=== PATIENT | female | born 1985 | race Caucasian/White ===

== ENCOUNTER → 2020-01-08 13:59 | Outpatient (BNVA) | payer OTHER, SELFPAY | PROVIDERS: Visit Provider Obstetrics & Gynecology | DX: R87.612 Low grade squamous intraepithelial lesion on cytologic smear of cervix (LGSIL) (principal) | CPT/HCPCS: 99203; 99213 ==

== ENCOUNTER 2020-02-06 13:59 | Outpatient (REF) | payer OTHER, SELFPAY | END 2020-02-06 14:00 | disposition home or self-care (01) | LOC: HO.LAB 13:59 | PROVIDERS: PCP Internal Medicine; Visit Provider Obstetrics & Gynecology | DX: R87.612 Low grade squamous intraepithelial lesion on cytologic smear of cervix (LGSIL) (principal) | CPT/HCPCS: 88305 ==

== ENCOUNTER → 2020-02-26 15:22 | Outpatient (BNVA) | payer OTHER, SELFPAY | PROVIDERS: Visit Provider Obstetrics & Gynecology | DX: Z76.89 Persons encountering health services in other specified circumstances (principal) ==

== ENCOUNTER 2020-07-15 08:32 | Outpatient (REF) | payer OTHER, SELFPAY ==
[2020-07-15 09:43] LABS: MANUAL DIFF FLAG NO
[2020-07-15 10:01] LABS: Basophils Absolute Auto 0.1 X10*3/uL (0.0-0.2); Basophils Percent Auto 0.5 % (0-2); Eosinophils Absolute Auto 0.2 X10*3/uL (0.0-0.4); Eosinophils Percent Auto 2.5 % (0-4); Hematocrit 41.6 % (37-47); Hemoglobin 13.4 g/dl (12.0-16.0); Imm Gran Abs Auto 0.05 X10*3/uL (0.00-0.03); Imm Gran Pct Auto 0.5 % (0.0-0.4); Lymphocytes Absolute Auto 2.2 X10*3/uL (1.2-4.9); Mean Corpuscular HGB Conc 32.2 g/dl (31.0-35.0); Mean Corpuscular Volume 93.3 fL (80-98); Mean Platelet Volume 10.1 fL (9.4-12.3); Monocytes Absolute Auto 0.5 X10*3/uL (0.1-1.2); Monocytes Percent Auto 5.2 % (2-11); Neutrophils Absolute Auto 6.8 X10*3/uL (2.0-8.3); Neutrophils Percent Auto 69.3 % (45-73); Platelet Count 364 X10*3/uL (160-400); Red Blood Count 4.46 X10*6/uL (4.20-5.50); White Blood Count 9.8 X10*3/uL (4.8-10.8)
[2020-07-15 10:07] LABS: Estimated Average Glucose 131 mg/dL; Hemoglobin A1C 155.5362 umol/L; Hemoglobin A1c % 6.2 %
[2020-07-15 10:08] LABS: Cholesterol 176 mg/dL; HDL Cholesterol 42 mg/dL; Iron 45 mcg/dL (30-160); LDL Cholesterol Calculated 102 mg/dl; Percent Iron Saturation 13 % (15-50); Total Iron Binding Capacity 358 mcg/dL (228-428); Triglycerides 161 mg/dL; Unsaturated Iron Binding 313 ug/dL
[2020-07-15 10:11] LABS: Alanine Aminotransferase 45 U/L (0-31); Albumin Level 4.1 g/dL (3.5-5.0); Alkaline Phosphatase 111 U/L (39-117); Anion Gap 12 (12-20); Aspartate Amino Transferase 22 U/L (5-31); Bilirubin Total 0.5 mg/dL (0.0-1.0); Blood Urea Nitrogen 11 mg/dL (9-16); Calcium 8.9 mg/dL (8.4-10.2); Carbon Dioxide 23 mmol/L (22-29); Chloride 107 mmol/L (96-108); Estimated Glomerular Filt Rate > 60; Glucose Random 139 mg/dL (60-115); Potassium 4.3 mmol/L (3.3-5.1); Sodium 138 mmol/L (135-145); Total Protein 7.2 g/dL (6.5-8.0)
[2020-07-15 10:30] LABS: Ferritin 27 ng/mL (10-122); Vitamin D 25-OH Total 12.9 ng/mL (>30)
[2020-07-15 10:33] LABS: Thyroid Stimulating Hormone 1.07 uIU/mL (0.32-4.0)
[2020-07-15 10:42] LABS: Folate 8.6 ng/mL (> or = 4.0); Vitamin B12 219 pg/mL (200-900)
[2020-07-21 23:16] LABS: Cotinine <2 ng/mL; Nicotine <2 ng/mL
== END 2020-07-15 08:33 | disposition home or self-care (01) ==
LOC: HO.LAB 08:32
PROVIDERS: PCP Internal Medicine; Referring Provider Surgery; Visit Provider Internal Medicine
DX: Z01.818 Encounter for other preprocedural examination (principal); E66.01 Morbid (severe) obesity due to excess calories; F31.9 Bipolar disorder, unspecified; L70.0 Acne vulgaris; M54.16 Radiculopathy, lumbar region
CPT/HCPCS: 36415; 80053; 80061; 80323; 82040; 82306; 82533; 82607; 82728; 82746; 83036; 83540; 83735; 84443; 85025

== ENCOUNTER 2020-08-31 17:08 | Emergency (ER) | payer OTHER, SELFPAY ==
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
[2020-08-31 17:15] VITALS: BP 168/100; PULSE 106
[2020-08-31 17:27] VITALS: BP 136/66; PULSE 102; RESP 18; O2SAT 97; BMI 53.6
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
[2020-08-31 18:58] LABS: MANUAL DIFF FLAG NO
[2020-08-31 19:04] LABS: Prothrombin Time 11.5 SEC (10.8-13.0)
[2020-08-31 19:05] LABS: Basophils Percent Auto 0.4 % (0-2); Eosinophils Absolute Auto 0.2 X10*3/uL (0.0-0.4); Hematocrit 38.3 % (37-47); Hemoglobin 12.6 g/dl (12.0-16.0); Imm Gran Abs Auto 0.08 X10*3/uL (0.00-0.03); Imm Gran Pct Auto 0.7 % (0.0-0.4); Lymphocytes Absolute Auto 2.1 X10*3/uL (1.2-4.9); Mean Corpuscular HGB Conc 32.9 g/dl (31.0-35.0); Mean Corpuscular Hemoglobin 30.4 pg (27.0-33.0); Mean Corpuscular Volume 92.5 fL (80-98); Mean Platelet Volume 9.6 fL (9.4-12.3); Monocytes Absolute Auto 0.6 X10*3/uL (0.1-1.2); Monocytes Percent Auto 5.4 % (2-11); Neutrophils Absolute Auto 7.8 X10*3/uL (2.0-8.3); Neutrophils Percent Auto 72.5 % (45-73); Platelet Count 351 X10*3/uL (160-400); Red Blood Count 4.14 X10*6/uL (4.20-5.50); White Blood Count 10.8 X10*3/uL (4.8-10.8)
[2020-08-31 19:06] LABS: Partial Thromboplastin Time 34.5 SEC (24.1-38.0)
[2020-08-31] MEDS: 0.9 % Sodium Chloride 1,000 ML 999 ML IV (19:17)
[2020-08-31 19:31] LABS: Alanine Aminotransferase 42 U/L (0-31); Alkaline Phosphatase 121 U/L (39-117); Anion Gap 10 (12-20); Aspartate Amino Transferase 29 U/L (5-31); Bilirubin Total 0.4 mg/dL (0.0-1.0); Blood Urea Nitrogen 17 mg/dL (9-16); Calcium 9.5 mg/dL (8.4-10.2); Carbon Dioxide 24 mmol/L (22-29); Chloride 108 mmol/L (96-108); Creatinine Clr Calc Pharmacy 150.1; Estimated Glomerular Filt Rate > 60; Glucose Random 143 mg/dL (60-115); Potassium 4.2 mmol/L (3.3-5.1); Sodium 138 mmol/L (135-145)
[2020-08-31 19:37] LABS: HCG Quantitative < 2 mIU/mL
[2020-08-31 19:37] LABS: Appearance Urine CLEAR; Color Urine YELLOW; Glucose Urine UA NEG (NEG); Leukocyte Esterase Urine NEG (NEG); Nitrite Urine NEG (NEG); Urine Blood NEG (NEG); Urine Ketones NEG (NEG); Urine Protein NEG (NEG-TRACE)
[2020-08-31 20:03] LABS: Amphetamine Screen Urine Not Detected (Not Detect); Barbiturates, Urine Not Detected (Not Detect); Benzodiazepines Screen Urine Not Detected (Not Detect); Cannabinoid Screen Urine Not Detected (Not Detect); Cocaine Screen Urine Not Detected (Not Detect); Opiate Screen Urine Not Detected (Not Detect); Phencyclidine Screen Urine Not Detected (Not Detect)
[2020-08-31] MEDS: iohexoL 350 MG/ML 100 ML INFUS..BTL IV (20:30)
== END 2020-08-31 22:02 | disposition home or self-care (01) ==
PROVIDERS: Physician Assistant; Emergency Provider Internal Medicine; PCP Internal Medicine
DX: S13.9XXA Sprain of joints and ligaments of unspecified parts of neck, initial encounter (principal); M54.2 Cervicalgia; M54.6 Pain in thoracic spine; R10.9 Unspecified abdominal pain; V43.52XA Car driver injured in collision with other type car in traffic accident, initial encounter; Y93.9 Activity, unspecified; Y92.411 Interstate highway as the place of occurrence of the external cause; Y99.9 Unspecified external cause status; Z79.899 Other long term (current) drug therapy
CPT/HCPCS: 36415; 71260; 72125; 74177; 80053; 80307; 81003; 84702; 85025; 85610; 85730; 96360; 99283; Q9967

== ENCOUNTER 2020-09-17 15:02 | Outpatient (RCR) | payer OTHER, SELFPAY | END 2020-10-26 10:10 | disposition home or self-care (01) | LOC: HO.PT 15:02 | PROVIDERS: PCP Internal Medicine; Visit Provider Internal Medicine | DX: M54.2 Cervicalgia (principal); M79.10 Myalgia, unspecified site | CPT/HCPCS: 97110; 97161 ==

== ENCOUNTER 2020-10-28 10:04 | Outpatient (REF) | payer OTHER, SELFPAY ==
[2020-10-29 00:47] LABS: CT PCR NOT DETECTED (Not Detect.); NG PCR NOT DETECTED (Not Detect.)
== END 2020-10-28 10:05 | disposition home or self-care (01) ==
LOC: HO.LAB 10:04
PROVIDERS: Visit Provider Obstetrics & Gynecology
DX: N92.1 Excessive and frequent menstruation with irregular cycle (principal); N87.0 Mild cervical dysplasia
CPT/HCPCS: 87491; 87591; 99212

== ENCOUNTER 2020-11-12 14:05 | Outpatient (REF) | payer OTHER, SELFPAY ==
--- NOTE | ~2020-11-12 | US_ITS ---
EXAMINATION: US PELVIC AND TRANSVAGINAL CLINICAL INFORMATION: Abnormal uterine and vaginal bleeding. COMPARISON: None TECHNIQUE: Ultrasound of the pelvis is performed using both transabdominal and transvaginal transducers along with Doppler. Transvaginal imaging is performed due to inadequate visualization transabdominally. FINDINGS: The uterus is anteverted and anteflexed measuring 10.1 cm in length, 4.7 cm in AP and 5.9 cm in transverse dimension. The endometrial thickness is 0.4 cm. No focal lesion is seen. Right ovary measures 4.2 x 3.2 x 3.6 cm and volume 25.3 mL. There is an anechoic cyst measuring 3.5 x 3.0 x 3.0 cm. Previously right ovary measured 3.1 x 4.3 x 3.1 cm. Left ovary measures 4.8 x 3.2 x 3.3 cm and volume 26.5 mL. There is an anechoic cyst measuring 3.2 x 2.1 x 2.6 cm. Previously left ovary measured 2.7 x 1.8 x 2.0 cm. There is small free fluid in the cul-de-sac. US/US pelvic and transvaginal IMPRESSION: Unremarkable uterus. Bilateral ovarian cysts. No free fluid in cul-de-sac.
[2020-11-12 14:48] LABS: Hematocrit 38.1 % (37-47); Hemoglobin 12.4 g/dl (12.0-16.0); Mean Corpuscular HGB Conc 32.5 g/dl (31.0-35.0); Mean Corpuscular Hemoglobin 30.4 pg (27.0-33.0); Mean Corpuscular Volume 93.4 fL (80-98); Mean Platelet Volume 9.7 fL (9.4-12.3); Platelet Count 329 X10*3/uL (160-400); Red Blood Count 4.08 X10*6/uL (4.20-5.50); Red Cell Distribution Width 14.4 % (11.0-16.0); White Blood Count 9.9 X10*3/uL (4.8-10.8)
[2020-11-12 16:00] LABS: HCG Quantitative < 2 mIU/mL
== END 2020-11-12 14:06 | disposition home or self-care (01) ==
LOC: HO.US 14:05
PROVIDERS: PCP Internal Medicine; Visit Provider Obstetrics & Gynecology
DX: N93.9 Abnormal uterine and vaginal bleeding, unspecified (principal)
CPT/HCPCS: 36415; 76830; 76856; 84443; 84702; 85027

== ENCOUNTER → 2020-11-18 14:13 | Outpatient (BNVA) | payer OTHER, SELFPAY | PROVIDERS: PCP Internal Medicine; Visit Provider Obstetrics & Gynecology ==

== ENCOUNTER → 2020-12-30 11:22 | Outpatient (BNVA) | payer OTHER, SELFPAY | PROVIDERS: PCP Internal Medicine; Visit Provider Obstetrics & Gynecology | DX: Z01.818 Encounter for other preprocedural examination (principal); N92.1 Excessive and frequent menstruation with irregular cycle | CPT/HCPCS: 99212 ==

== ENCOUNTER 2021-01-08 09:01 | Day surgery (SDC) | payer OTHER, SELFPAY ==
--- NOTE | 2021-01-06 14:06 | HO.ANESPROP2 ---
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 Migraine with aura Family History Family History Maternal Grandfather Liver cancer Paternal Grandmother Breast cancer Intestinal tumor Family/Other Uterine cancer Ovarian cancer Surgical History Surgical History History of Hx laparoscopic cholecystectomy Social History Social History Alcohol intake: current Substance Use Type: Marijuana Advance Directives: No Advance Directives Information Provided: Yes Sexual orientation: Straight/Heterosexual Gender identity: Female Meds Allergies Allergy/AdvReac Type Severity Reaction Status Date / Time penicillin V Allergy Unknown rash Verified 10/28/20 10:14 Home Medications Medication Instructions Recorded Confirmed Last Taken Type cyclobenzaprine 15 mg 15 mg PO DAILY 02/26/20 02/26/20 Unknown History capsule,extended release 24 hr topiramate 50 mg tablet (Topamax) 50 mg PO BID 02/26/20 02/26/20 01/08/21 History ferrous sulfate 325 mg (65 mg 325 mg PO DAILY 10/28/20 Unknown History iron) tablet (iron) loratadine 10 mg tablet 10 mg PO DAILY 10/28/20 01/08/21 History medroxyprogesterone 10 mg tablet 10 mg PO DAILY 10/28/20 Unknown History (Provera) omeprazole 20 mg tablet,delayed 20 mg PO DAILY 10/28/20 01/08/21 History release propranolol 40 mg tablet 1 tab PO BID 01/08/21 01/08/21 01/08/21 History venlafaxine 150 mg 1 cap PO DAILY 01/08/21 01/08/21 01/08/21 History capsule,extended release 24 hr Exam Exam Date and Time: January 06, 2021 1406 Pertinent Lab Results Pertinent Lab Results: Laboratory Tests 08/31/20 11/12/20 18:48 14:15 WBC 9.9 Hgb 12.4 Hct 38.1 Plt Count 329 Sodium 138 Potassium 4.2 Chloride 108 Carbon Dioxide 24 BUN 17 H D Creatinine 0.75 Assessment and Plan Assessment Anesthesia Assessment: Chart Reviewed Documented by User: Alyce Weaver MD 01/08/21 09:22 [facility] Past Medical History Medical History ADHD Bipolar 2 disorder 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 Migraine with aura Functional capacity: independent ambulation Patient : No Family History Family History Maternal Grandfather Liver cancer Paternal Grandmother Breast cancer Intestinal tumor Family/Other Uterine cancer Ovarian cancer Family history of problems with anesthesia: No Surgical History Surgical History History of Hx laparoscopic cholecystectomy History of Problems with Anesthesia: No Social History Social History Alcohol intake: current Substance Use Type: Marijuana Advance Directives: No Advance Directives Information Provided: Yes Sexual orientation: Straight/Heterosexual Gender identity: Female Meds Allergies Allergy/AdvReac Type Severity Reaction Status Date / Time penicillin V Allergy Unknown rash Verified 10/28/20 10:14 Home Medications Medication Instructions Recorded Confirmed Last Taken Type cyclobenzaprine 15 mg 15 mg PO DAILY 02/26/20 02/26/20 Unknown History capsule,extended release 24 hr topiramate 50 mg tablet (Topamax) 50 mg PO BID 02/26/20 02/26/2021 History ferrous sulfate 325 mg (65 mg 325 mg PO DAILY 10/28/20 Unknown History iron) tablet (iron) loratadine 10 mg tablet 10 mg PO DAILY 10/28/20 01/08/21 History medroxyprogesterone 10 mg tablet 10 mg PO DAILY 10/28/20 Unknown History (Provera) omeprazole 20 mg tablet,delayed 20 mg PO DAILY 10/28/20 01/08/21 History release propranolol 40 mg tablet 1 tab PO BID 01/08/21 01/08/21 01/08/21 History venlafaxine 150 mg 1 cap PO DAILY 01/08/21 01/08/21 01/08/21 History capsule,extended release 24 hr Exam Airway TM Dist: >3cm Neck ROM: Full Heart: RRR Lungs: Lamar Assessment and Plan Final Anesthetic Review Family History of Problems with Anesthesia: No History of Problems with Anesthesia: No
[2021-01-08] VITALS (7 sets, daily range): BP systolic 123–147; BP diastolic 73–97; PULSE 76–88; RESP 14–18; TEMP 36.4–37.1; O2SAT 93–98; BMI 55.2
[2021-01-08 09:32] LABS: UPreg QC Valid YES; Urine Pregnancy NEGATIVE (NEGATIVE)
[2021-01-08] MEDS: Lactated Ringers 1,000 ML 100 ML IVCONT (10:03)
--- NOTE | 2021-01-08 10:04 | MHC.SHP ---
Pre-Procedural Eval Section A Date of Service: 01/08/21 The patient is an INPATIENT: No Changes since office visit: No Cold of Flu in the past 2 weeks, No New Medical Problems, No Changes in Medication and No Patient answered all questions The History & Physical has been completed within 30 days and I have reviewed it.: Yes Section B Chief Complaint: frequent bleeding Allergies: Allergies Allergy/AdvReac Type Severity Reaction Status Date / Time penicillin V Allergy Unknown rash Verified 10/28/20 10:14 Plan Diagnosis/Plan: Unchanged I have reviewed the history and physical and performed a pertinent physical examination on my patient. No changes have occurred unless specified.
--- NOTE | 2021-01-08 10:53 | P.BOP_ITS ---
Brief Operative Note Date of Service: 01/08/21 Pre-op diagnosis: Menometrorrhagia Post-op diagnosis: same Procedure: Hysteroscopy D&C Surgeon: Dylan Blakely MD Anesthesia: MAC Was an Experimental Aircraft Mechanic used for this Procedure?: No Estimated blood loss (mL): 0 Pathology: other (Endometrial Scrapping) Condition: stable Disposition: PACU
--- NOTE | 2021-01-08 10:53 | W.PM.OPN ---
Operative Note Operative Note Date of Service: 01/08/21 Narrative: Preop Diagnosis: Menometrorrhagia Operation: Diagnostic Hysteroscopy, Dilataion & Curettage Post Op Diagnosis: Normal endometrial cavity QBL: Minimal Anesthesia: MAC Surgeon: Dylan Blakely MD Intellectual Property Paralegal: None Complication: None Pathology: Endometrial Scrapings Complication: None Pathology: Endometrial Scrapings Procedure: The patient was put in the dorsal lithotomy position, scrubbed, and draped in the usual manner. A sterile speculum was inserted in the patient's vagina. The anterior lip of the cervix was grasped with a single tooth tenaculum. The cervix was dilated up to 5 mm, then the scope was inserted in the patient's uterus. Inspection revealed Normal endometrial cavity. Sharp curetting was carried on with moderate amount of tissues. At the end of the procedure, all instruments were taken out of the patient uterine and vaginal cavity. The single tooth tenaculum was removed and homeostasis was assured using pressure,. The patient tolerated the procedure well and was transferred to the PACU in a stable condition.
[2021-01-08] MEDS: Acetaminophen 325 MG TABLET 650 MG PO (12:04)
--- NOTE | 2021-01-08 14:01 | HO.POSTANES ---
Post Anesthesia Evaluation Post Anesthesia Evaluation Vital Signs: Vital Signs Temp Pulse Resp BP Pulse Ox 01/08/21 11:49 98.2 F 77 18 123/91 H 95 01/08/21 11:33 81 18 134/88 93 01/08/21 11:18 88 16 131/73 93 01/08/21 11:13 78 16 147/97 H 96 01/08/21 11:08 76 14 146/95 H 98 01/08/21 11:03 97.5 F 77 15 128/90 H 96 01/08/21 09:28 98.7 F 87 18 134/86 97 Anesthesia: General LMA Mental Status: Awake Pain Control: Satisfactory Nausea/Vomiting: None Hydration: Adequate Anesthesia-Related Issues: No Anes. Related Issues
== END 2021-01-08 12:45 | disposition home or self-care (01) ==
PROVIDERS: Nurse Practitioner; Visit Provider Obstetrics & Gynecology
PROC: 0UDB8ZZ Extraction of Endometrium, Via Natural or Artificial Opening Endoscopic (ICD-10-PCS; CPT 58558; principal; 2021-01-08 10:20)
DX: N92.1 Excessive and frequent menstruation with irregular cycle (principal); Z86.19 Personal history of other infectious and parasitic diseases; Z80.49 Family history of malignant neoplasm of other genital organs; Z80.41 Family history of malignant neoplasm of ovary; Z88.0 Allergy status to penicillin; Z90.49 Acquired absence of other specified parts of digestive tract; F12.90 Cannabis use, unspecified, uncomplicated
CPT/HCPCS: 58558; 81025; 88305; J1100; J2250; J2405; J3010

== ENCOUNTER → 2021-01-21 14:54 | Outpatient (BNVA) | payer OTHER, SELFPAY | PROVIDERS: Visit Provider Obstetrics & Gynecology ==

== ENCOUNTER → 2021-04-26 15:34 | Outpatient (BNVA) | payer OTHER, SELFPAY | PROVIDERS: Visit Provider Obstetrics & Gynecology ==

== ENCOUNTER 2021-06-08 16:31 | Outpatient (REF) | payer OTHER, SELFPAY ==
[2021-06-08 16:52] LABS: MANUAL DIFF FLAG NO
[2021-06-08 17:13] LABS: Basophils Percent Auto 0.5 % (0-2); Eosinophils Absolute Auto 0.2 X10*3/uL (0.0-0.4); Eosinophils Percent Auto 1.8 % (0-4); Hematocrit 43.6 % (37.0-47.0); Hemoglobin 13.8 g/dl (12.0-16.0); Imm Gran Abs Auto 0.07 X10*3/uL (0.00-0.03); Imm Gran Pct Auto 0.8 % (0.0-0.4); Lymphocytes Absolute Auto 2.3 X10*3/uL (1.2-4.9); Lymphocytes Percent Auto 26.1 % (20-40); Mean Corpuscular HGB Conc 31.7 g/dl (31.0-35.0); Mean Corpuscular Hemoglobin 30.3 pg (27.0-33.0); Mean Corpuscular Volume 95.8 fL (80.0-98.0); Mean Platelet Volume 10.6 fL (9.4-12.3); Monocytes Absolute Auto 0.4 X10*3/uL (0.1-1.2); Monocytes Percent Auto 4.8 % (2-11); Neutrophils Absolute Auto 5.8 x10*3/uL (2.0-8.3); Platelet Count 276 X10*3/uL (160-400); Red Blood Count 4.55 X10*6/uL (4.20-5.50); Red Cell Distribution Width 13.5 % (11.0-16.0); White Blood Count 8.8 X10*3/uL (4.8-10.8)
[2021-06-08 18:31] LABS: Amylase 16 U/L (28-100)
[2021-06-08 18:33] LABS: Osmolality, Serum 299 mosm/kg (281-305)
[2021-06-08 18:37] LABS: Thyroid Stimulating Hormone 2.08 uIU/mL (0.32-4.0)
[2021-06-08 18:40] LABS: Alanine Aminotransferase 64 U/L (0-31); Albumin Level 4.2 g/dL (3.5-5.0); Alkaline Phosphatase 153 U/L (39-117); Anion Gap 14 (12-20); Aspartate Amino Transferase 50 U/L (5-31); Bilirubin Total 0.3 mg/dL (0.0-1.0); Blood Urea Nitrogen 12 mg/dL (9-16); Calcium 9.9 mg/dL (8.4-10.2); Carbon Dioxide 24 mmol/L (22-29); Chloride 98 mmol/L (96-108); Estimated Glomerular Filt Rate > 60; Glucose Random 457 mg/dL (60-115); Potassium 4.5 mmol/L (3.3-5.1); Sodium 131 mmol/L (135-145); Total Protein 7.4 g/dL (6.5-8.0)
[2021-06-09 03:57] LABS: Estimated Average Glucose 315 mg/dL; Hemoglobin A1c % 12.6 %
== END 2021-06-08 16:32 | disposition home or self-care (01) ==
LOC: HO.LAB 16:31
PROVIDERS: PCP Internal Medicine; Visit Provider Internal Medicine
DX: D50.8 Other iron deficiency anemias (principal); E11.65 Type 2 diabetes mellitus with hyperglycemia; R10.9 Unspecified abdominal pain; R63.1 Polydipsia
CPT/HCPCS: 36415; 80053; 82150; 83036; 83930; 84443; 85025

== ENCOUNTER 2021-10-26 11:40 | Outpatient (REF) | payer OTHER, SELFPAY ==
--- NOTE | ~2021-10-26 | XR_ITS ---
EXAMINATION: XR LUMBOSACRAL SPINE WITH OBLIQUES CLINICAL INFORMATION: Midline low back pain with right-sided sciatica. COMPARISON: Lumbar spine radiographs 12/20/[address] abdomen pelvis 08/31/2020. TECHNIQUE: AP, both oblique, and lateral views of the lumbar spine. Lateral view of the lumbosacral junction. FINDINGS: Mild degenerative changes are present in the spine predominantly at L4-L5 with mild disc space narrowing. The previously seen anterolisthesis of L4 upon L5 is only minimally appreciated on the current study and appeared larger previously. Bilateral pars intra-articularis defects are present, but better appreciated on the prior study. XR/XR lumbar spine 4V min IMPRESSION: Degenerative changes predominantly at L4-L5 with mild grade 1 anterolisthesis and bilateral pars defects.
[2021-10-26 12:15] LABS: MANUAL DIFF FLAG NO
[2021-10-26 12:46] LABS: Basophils Percent Auto 0.4 % (0-2); Eosinophils Absolute Auto 0.1 X10*3/uL (0.0-0.4); Eosinophils Percent Auto 1.5 % (0-4); Hematocrit 41.1 % (37.0-47.0); Hemoglobin 13.5 g/dl (12.0-16.0); Imm Gran Abs Auto 0.05 X10*3/uL (0.00-0.03); Imm Gran Pct Auto 0.5 % (0.0-0.4); Lymphocytes Absolute Auto 2.4 X10*3/uL (1.2-4.9); Lymphocytes Percent Auto 25.4 % (20-40); Mean Corpuscular HGB Conc 32.8 g/dl (31.0-35.0); Mean Corpuscular Hemoglobin 30.8 pg (27.0-33.0); Mean Corpuscular Volume 93.8 fL (80.0-98.0); Mean Platelet Volume 9.7 fL (9.4-12.3); Monocytes Absolute Auto 0.5 X10*3/uL (0.1-1.2); Monocytes Percent Auto 5.1 % (2-11); Neutrophils Absolute Auto 6.3 x10*3/uL (2.0-8.3); Neutrophils Percent Auto 67.1 % (45-73); Platelet Count 394 X10*3/uL (160-400); Red Blood Count 4.38 X10*6/uL (4.20-5.50); Red Cell Distribution Width 13.2 % (11.0-16.0); White Blood Count 9.4 X10*3/uL (4.8-10.8)
[2021-10-26 12:51] LABS: Estimated Average Glucose 117 mg/dL; Hemoglobin A1c % 5.7 %
[2021-10-26 13:16] LABS: Alanine Aminotransferase 51 U/L (0-31); Albumin Level 4.3 g/dL (3.5-5.0); Alkaline Phosphatase 139 U/L (39-117); Anion Gap 14 (12-20); Aspartate Amino Transferase 28 U/L (5-31); Bilirubin Total 0.3 mg/dL (0.0-1.0); Blood Urea Nitrogen 13 mg/dL (9-16); Calcium 9.6 mg/dL (8.4-10.2); Carbon Dioxide 21 mmol/L (22-29); Chloride 106 mmol/L (96-108); Cholesterol 185 mg/dL; Estimated Glomerular Filt Rate > 60; Glucose Random 104 mg/dL (60-115); HDL Cholesterol 35 mg/dL; LDL Cholesterol Calculated 116 mg/dl; Potassium 4.7 mmol/L (3.3-5.1); Sodium 136 mmol/L (135-145); Total Protein 7.5 g/dL (6.5-8.0); Triglycerides 170 mg/dL
[2021-10-26 14:46] LABS: Microalbumin Urine < 5.0 mg/L
== END 2021-10-26 11:41 | disposition home or self-care (01) ==
LOC: HO.LAB 11:40
PROVIDERS: Absent Provider Physician Assistant; PCP Internal Medicine; Visit Provider Internal Medicine
DX: E11.9 Type 2 diabetes mellitus without complications (principal); K29.60 Other gastritis without bleeding; M51.16 Intervertebral disc disorders with radiculopathy, lumbar region
CPT/HCPCS: 36415; 72110; 80053; 80061; 82043; 83036; 85025

== ENCOUNTER 2022-07-07 10:32 | Outpatient (REF) | payer OTHER, SELFPAY ==
[2022-07-11 22:44] LABS: HPV mRNA E6/E7 rflx Not Detected (Not Detected)
== END 2022-07-07 10:33 | disposition home or self-care (01) ==
LOC: HO.LNP 10:32
PROVIDERS: Visit Provider Obstetrics & Gynecology
DX: Z01.419 Encounter for gynecological examination (general) (routine) without abnormal findings (principal); Z11.51 Encounter for screening for human papillomavirus (HPV)
CPT/HCPCS: 87624; 88142

== ENCOUNTER 2022-10-20 10:10 | Outpatient (REF) | payer MEDICAID, SELFPAY ==
[2022-10-20 10:40] LABS: MANUAL DIFF FLAG NO
[2022-10-20 10:59] LABS: Basophils Percent Auto 0.3 % (0-2); Eosinophils Absolute Auto 0.2 X10*3/uL (0.0-0.4); Eosinophils Percent Auto 1.4 % (0-4); Hematocrit 43.3 % (37.0-47.0); Imm Gran Abs Auto 0.07 X10*3/uL (0.00-0.03); Imm Gran Pct Auto 0.6 % (0.0-0.4); Lymphocytes Absolute Auto 2.6 X10*3/uL (1.2-4.9); Mean Corpuscular HGB Conc 32.3 g/dl (31.0-35.0); Mean Corpuscular Volume 92.9 fL (80.0-98.0); Monocytes Absolute Auto 0.5 X10*3/uL (0.1-1.2); Monocytes Percent Auto 4.2 % (2-11); Neutrophils Absolute Auto 8.3 x10*3/uL (2.0-8.3); Neutrophils Percent Auto 71.5 % (45-73); Platelet Count 407 X10*3/uL (160-400); Red Blood Count 4.66 X10*6/uL (4.20-5.50); Red Cell Distribution Width 13.3 % (11.0-16.0); White Blood Count 11.6 X10*3/uL (4.8-10.8)
[2022-10-20 11:12] LABS: Estimated Average Glucose 126 mg/dL
[2022-10-20 11:34] LABS: Alanine Aminotransferase 38 U/L (0-31); Alkaline Phosphatase 94 U/L (39-117); Anion Gap 15 (12-20); Aspartate Amino Transferase 22 U/L (5-31); Bilirubin Total 0.4 mg/dL (0.0-1.0); Blood Urea Nitrogen 9 mg/dL (9-16); Calcium 9.6 mg/dL (8.4-10.2); Carbon Dioxide 22 mmol/L (22-29); Chloride 106 mmol/L (96-108); Cholesterol 163 mg/dL; Estimated Glomerular Filt Rate > 60; Glucose Random 118 mg/dL (60-115); HDL Cholesterol 36 mg/dL; LDL Cholesterol Calculated 103 mg/dl; Sodium 139 mmol/L (135-145); Total Protein 7.7 g/dL (6.5-8.0); Triglycerides 120 mg/dL
[2022-10-20 11:53] LABS: Vitamin D 25-OH Total 19.5 ng/mL (>30)
[2022-10-20 13:30] LABS: Creatinine Urine 117.38 mg/dL; Microalbumin Urine < 5.0 mg/L
== END 2022-10-20 10:11 | disposition home or self-care (01) ==
LOC: HO.LAB 10:10
PROVIDERS: PCP Nurse Practitioner Family; Visit Provider Registered Nurse
DX: E11.9 Type 2 diabetes mellitus without complications (principal)
CPT/HCPCS: 36415; 80053; 80061; 82043; 82306; 83036; 84443; 85025

== ENCOUNTER 2022-12-12 14:43 | Outpatient (REF) | payer MEDICAID, SELFPAY ==
--- NOTE | ~2022-12-12 | XR_ITS ---
EXAMINATION: XR THORACOLUMBAR SPINE CLINICAL INFORMATION: Pain. COMPARISON: CT chest August 31, 2020 TECHNIQUE: 2 views FINDINGS: Thoracic vertebrae have normal height and alignment. No fracture or bone destruction. There is mild to moderate degenerative lipping from degenerative disc disease of the mid and lower thoracic vertebral bodies. No paraspinal soft tissue abnormality. No change since CAT scan August 31, 2020. XR/XR thoracic spine 2V IMPRESSION: 1. No acute abnormality. 2. There is degenerative spondylosis of thoracic spine.
--- NOTE | ~2022-12-12 | XR_ITS ---
EXAMINATION: AP pelvis and bilateral hip. CLINICAL INDICATION: Chronic bilateral low back pain. COMPARISON: AP pelvis 01/19/2015 TECHNIQUE: AP pelvis one view. 2 views each hip. FINDINGS: AP PELVIS: There is normal symmetry of bilateral hip joints and SI joints. No visible acute fracture, dislocation or subluxation seen. No bony erosive changes. The soft tissues are normal. RIGHT HIP: AP and frog-leg views right hip reveal small tiny bone fragment at the tip of lateral acetabulum likely an old avulsion fragment. No acute fracture or dislocation seen. LEFT HIP: The left hip joint space is maintained normal. No loose bodies or avulsion injury seen. No acute fracture or dislocation. The soft tissues are normal. XR/XR pelvis 1-2V IMPRESSION: Slight tiny bone fragment adjacent to right lateral acetabulum question old avulsion injury. There is no acute fracture or dislocation either. Unremarkable AP pelvis exam. The AP pelvis exam appears similar to previous study from 2015.
--- NOTE | ~2022-12-12 | XR_ITS ---
EXAMINATION: XR LUMBOSACRAL SPINE CLINICAL INFORMATION: Chronic low back pain. COMPARISON: Lumbar spine December 20, 2019, October 26, 2021 TECHNIQUE: AP. Lateral. Cone-down lumbosacral junction. FINDINGS: Lumbar vertebrae have normal height. No fracture or bone destruction. There is degenerative spondylosis. Lumbar disc height narrowing at L4-L5 with anterior vertebral endplate spur. Grade 1 anterolisthesis of L4 and L5 due to facet joint disease. This is similar to the prior exam of October 26, 2021. Sacroiliac joints are normal. Surgical clips right upper quadrant of abdomen. XR/XR lumbar spine 2-3V IMPRESSION: 1. No acute abnormality. 2. Degenerative spondylosis of lumbar spine. 3. Grade 1 anterolisthesis of L4 on L5 due to facet joint disease. No significant change since prior exam October 26, 2021.
--- NOTE | ~2022-12-12 | XR_ITS ---
EXAMINATION: AP pelvis and bilateral hip. CLINICAL INDICATION: Chronic bilateral low back pain. COMPARISON: AP pelvis 01/19/2015 TECHNIQUE: AP pelvis one view. 2 views each hip. FINDINGS: AP PELVIS: There is normal symmetry of bilateral hip joints and SI joints. No visible acute fracture, dislocation or subluxation seen. No bony erosive changes. The soft tissues are normal. RIGHT HIP: AP and frog-leg views right hip reveal small tiny bone fragment at the tip of lateral acetabulum likely an old avulsion fragment. No acute fracture or dislocation seen. LEFT HIP: The left hip joint space is maintained normal. No loose bodies or avulsion injury seen. No acute fracture or dislocation. The soft tissues are normal. XR/XR hip LT min 2V IMPRESSION: Slight tiny bone fragment adjacent to right lateral acetabulum question old avulsion injury. There is no acute fracture or dislocation either. Unremarkable AP pelvis exam. The AP pelvis exam appears similar to previous study from 2015.
--- NOTE | ~2022-12-12 | XR_ITS ---
EXAMINATION: AP pelvis and bilateral hip. CLINICAL INDICATION: Chronic bilateral low back pain. COMPARISON: AP pelvis 01/19/2015 TECHNIQUE: AP pelvis one view. 2 views each hip. FINDINGS: AP PELVIS: There is normal symmetry of bilateral hip joints and SI joints. No visible acute fracture, dislocation or subluxation seen. No bony erosive changes. The soft tissues are normal. RIGHT HIP: AP and frog-leg views right hip reveal small tiny bone fragment at the tip of lateral acetabulum likely an old avulsion fragment. No acute fracture or dislocation seen. LEFT HIP: The left hip joint space is maintained normal. No loose bodies or avulsion injury seen. No acute fracture or dislocation. The soft tissues are normal. XR/XR hip RT min 2V IMPRESSION: Slight tiny bone fragment adjacent to right lateral acetabulum question old avulsion injury. There is no acute fracture or dislocation either. Unremarkable AP pelvis exam. The AP pelvis exam appears similar to previous study from 2015.
== END 2022-12-12 14:44 | disposition home or self-care (01) ==
LOC: HO.HHCX 14:43
PROVIDERS: Visit Provider Registered Nurse
DX: M25.552 Pain in left hip (principal); M54.41 Lumbago with sciatica, right side; G89.29 Other chronic pain
CPT/HCPCS: 72070; 72100; 72170; 73502

== ENCOUNTER 2022-12-29 12:55 | Outpatient (AMB) | payer MEDICAID, SELFPAY ==
--- NOTE | 2022-12-29 13:08 | MHC.OFFVIS ---
Intake Vital Signs 12/29/22 13:17 Height 5 ft 5 in Weight 284 lb 8 oz BMI 47.3 BP 129/77 Blood Pressure Location Lt radial Respiration 18 Pulse 91 Pulse Source Pulse Oximeter Pulse Oximetry (%) 98 Oxygen Delivery Method Room Air Intake Visit Reasons: lumbar radiculopathy/thoracic spondylosis Allergies penicillin V Allergy (Unknown, Verified 12/29/22 13:03) rash HPI HPI Comments History of Present Illness Details Elle is a very pleasant 37 year old female who presents to the office today for evaluation and management of her chronic lower back pain. Patient reports she has been suffering with this pain since 2012 when she fell through a floor. Pain is located in her right lower back with radiation down right leg to the foot. She endorses pain, burning and some numbness of the RLE. Patient tried PT a couple years ago with some relief. She has tried NSAIDs, tylenol, muscle relaxers without relief. She currently uses THC for her pain with some relief. She states the pain was stable for many years but has worsened over the last year. She has been working on losing weight, states eating better and has improved her A1c. She is non insulin diabetic, most recent A1c was 6.0 on 09/2022. 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 She is using a rollator walker for ambulation. She describes the pain as constant, currently rated today at 8/10. Patient denies red flag symptoms including new loss of bowel, bladder or saddle anesthesia. In terms of muscle damage condition is described as aching, shooting, dull, spasming, cramping, numb and throbbing. Pain is negatively impacting patients enjoyment of life, general activity, mood, normal work, recreational activities, relationships with people, sleep and walking. 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 Surgical History Hx laparoscopic cholecystectomy History of Family History Maternal Grandfather Liver cancer Paternal Grandmother Breast cancer Intestinal tumor Family/Other Uterine cancer Ovarian cancer Social History Alcohol intake: current Patient Tobacco Use Status: Former Tobacco user Substance Use Type: Marijuana Sexual orientation: Straight/Heterosexual Gender identity: Female Female Reproductive History Menstrual Age of Menarche: 9 Review of Systems Const All systems reviewed & are unremarkable except as noted in HPI and below Physical Exam Vital Signs: Last Vital Signs Pulse 91 12/29/22 13:17 Resp 18 12/29/22 13:17 BP 129/77 12/29/22 13:17 Pulse Ox 98 12/29/22 13:17 Oxygen Delivery Method Room Air 12/29/22 13:17 BMI result Body Mass Index 47.3 General: awake, alert, oriented. Answers questions appropriately. Fully engaged in examination. Skin: warm, dry, intact HEENT: Normocephalic. Hearing intact. Cardiac: External chest normal in appearance. Respiratory: No cough, audible wheezing or stridor. Abdomen: without gross distension. MS: No obvious swelling or deformities. Able to stand on bilateral tiptoes and bilateral heels.? Able to transition from sit to stand unassisted. Ambulates with bilaterally normal heel strike and toe off Tender to palpation over lumbar paraspinal muscles nontender to palpation PSIS SLR with and without dorsiflexion positive on right, negative on left Jean-Claude positive on right Right hip: ROM intact, no pain with I/E rotation Neurological: Oriented to person, place, time and situation. Thought process intact. using rollator walker for ambulation Psychiatric: Appropriate mood and affect. Good judgment and insight. Results Reviewed Results Reviewed: 12/12/2022 XR/XR lumbar spine 2-3V FINDINGS: Lumbar vertebrae have normal height. No fracture or bone destruction. There is degenerative spondylosis. Lumbar disc height narrowing at L4-L5 with anterior vertebral endplate spur. Grade 1 anterolisthesis of L4 and L5 due to facet joint disease. This is similar to the prior exam of October 26, 2021. Sacroiliac joints are normal. Surgical clips right upper quadrant of abdomen. IMPRESSION: 1. No acute abnormality. 2. Degenerative spondylosis of lumbar spine. 3. Grade 1 anterolisthesis of L4 on L5 due to facet joint disease. No significant change since prior exam October 26, 2021. 12/12/2022 XR/XR pelvis 1-2V FINDINGS: AP PELVIS: There is normal symmetry of bilateral hip joints and SI joints. No visible acute fracture, dislocation or subluxation seen. No bony erosive changes. The soft tissues are normal. RIGHT HIP: AP and frog-leg views right hip reveal small tiny bone fragment at the tip of lateral acetabulum likely an old avulsion fragment. No acute fracture or dislocation seen. LEFT HIP: The left hip joint space is maintained normal. No loose bodies or avulsion injury seen. No acute fracture or dislocation. The soft tissues are normal. IMPRESSION: Slight tiny bone fragment adjacent to right lateral acetabulum question old avulsion injury. There is no acute fracture or dislocation either. Unremarkable AP pelvis exam. The AP pelvis exam appears similar to previous study from 2015. 12/12/2022 XR/XR thoracic spine 2V FINDINGS: Thoracic vertebrae have normal height and alignment. No fracture or bone destruction. There is mild to moderate degenerative lipping from degenerative disc disease of the mid and lower thoracic vertebral bodies. No paraspinal soft tissue abnormality. No change since CAT scan August 31, 2020. IMPRESSION: 1. No acute abnormality. 2. There is degenerative spondylosis of thoracic spine Assessment & Plan Assessment & Plan (1) Lumbar radiculopathy: Code(s): M54.16 - Radiculopathy, lumbar region (2) Facet arthritis of lumbar region: Code(s): M47.816 - Spondylosis without myelopathy or radiculopathy, lumbar region Plan Elle is a very pleasant 37 year old female who presented to the office today for evaluation and management of her chronic lower back pain. History, physical exam and provocative testing consistant with lumbar radiculopathy. MRI LS without contrast ordered for further evaluation given patient's reported burning, numbness and pain down right leg to the toes. Order placed for PT eval and treat Discussed options for treatment including diagnostic interventional testing, epidural steroid injections, peripheral nerve stimulation with Sprint, RFA and more permanent neuromodulation. Plan for L4-5 L5-S1 TFESI pending MRI results. If warranted will refer to neurosurgery for evaluation. All questions and concerns have been answered and patient agrees with the plan. Follow up after MRI/PT, sooner if needed. Orders: Orders MR lumbar spine wo con Today M54.16 - Radiculopathy, lumbar region PT Evaluation and Treatment Today M54.16 - Radiculopathy, lumbar region Coding Level of Care Code New Pt Level 4 (21409) Diagnoses Lumbar radiculopathy M54.16 Facet arthritis of lumbar region M47.816
[2022-12-29 13:17] VITALS: BP 129/77; PULSE 91; RESP 18; O2SAT 98; BMI 47.3
== END 2022-12-29 13:47 | disposition home or self-care (01) ==
PROVIDERS: PCP Nurse Practitioner Family; Visit Provider Registered Nurse Emergency
DX: M54.16 Radiculopathy, lumbar region (principal); M47.816 Spondylosis without myelopathy or radiculopathy, lumbar region
CPT/HCPCS: 99204

== ENCOUNTER → 2022-12-29 12:55 | Outpatient (BNVA) | payer MEDICAID, SELFPAY | PROVIDERS: PCP Nurse Practitioner Family; Visit Provider Registered Nurse Emergency | DX: M47.26 Other spondylosis with radiculopathy, lumbar region (principal) | CPT/HCPCS: 99212 ==

== ENCOUNTER 2023-02-03 11:00 | Outpatient (RCR) | payer MEDICAID, SELFPAY | END 2023-03-17 10:40 | disposition home or self-care (01) | LOC: HO.PT 11:00 | PROVIDERS: PCP Registered Nurse; Visit Provider Registered Nurse | DX: M54.16 Radiculopathy, lumbar region (principal); M47.814 Spondylosis without myelopathy or radiculopathy, thoracic region | CPT/HCPCS: 97110; 97161; 97535 ==

== ENCOUNTER 2023-05-23 21:47 | Emergency (ER) | payer MEDICAID, SELFPAY ==
[2023-05-23 22:24] VITALS: BP 118/78; PULSE 88; RESP 14; TEMP 37; O2SAT 95; BMI 46.6
[2023-05-23 23:35] LABS: COVID-19 Test Negative (Negative); IDNOW Serial# 08D9AD1C; IDNOW Serial# 9DB6401D; Influenza A Negative (Negative); Influenza B2 Negative (Negative)
--- NOTE | 2023-05-24 00:26 | ED_ITS ---
HPI - General Adult General Chief complaint: Headache Stated complaint: ear pain/headache Time Seen by Provider: 05/23/23 23:56 Source: patient Mode of arrival: ambulatory Limitations: no limitations History of Present Illness HPI narrative: 37 yold female with pmh of lumbar radiculopathy and low-grade squamous intraepithelial dysplasia presents to the ED for bilateral ear pain, sinus pain for 1 week. Patient states hearing whooshing sound in bilateral ears with pain. Patient denies any discharge or bleeding from ears. Patient denies any head trauma. Patient denies any chest pain, coughing rash, shortness of breath. Patient denies any sore throat. Related Data Home Medications Medication Instructions Recorded Confirmed cyclobenzaprine 15 mg 15 mg PO DAILY 02/26/20 02/26/20 capsule,extended release 24 hr omeprazole 20 mg tablet,delayed 20 mg PO DAILY 10/28/20 release blood sugar diagnostic (FreeStyle #10 ea 07/07/22 Lite Strips) lancets 28 gauge (FreeStyle #100 ea 07/07/22 Lancets) acetaminophen 325 mg capsule 650 mg PO Q6H PRN 12/29/22 gabapentin 100 mg capsule 100 mg PO TID 12/29/22 Previous Rx's Medication Instructions Recorded cefuroxime axetil 500 mg tablet 500 mg PO Q12H 7 days #14 tabs 05/24/23 naproxen 500 mg tablet 500 mg PO BID PRN pain 7 days #14 05/24/23 tabs Allergies Allergy/AdvReac Type Severity Reaction Status Date / Time penicillin V Allergy Unknown rash Verified 05/23/23 22:24 Review of Systems Review of Systems: bilateral ear pain, sinus pain, head congestion Yes all other systems are reviewed and are negative [facility] Past Medical History Medical History KRISHNA I (cervical intraepithelial neoplasia I) Migraine with aura ADHD Bipolar 2 disorder 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 Surgical History Hx laparoscopic cholecystectomy History of Family History Family History Maternal Grandfather Liver cancer Paternal Grandmother Breast cancer Intestinal tumor Family/Other Uterine cancer Ovarian cancer Social History Social History (Reviewed 12/29/22 @ 14:32 by Nguyen Lundberg, INTERNAL MEDICINE PHYSICIAN, ASSOCIATE PROGRAMMER) Alcohol intake: current Comment: cramping Patient Tobacco Use Status: Former Tobacco user Substance Use Type: Marijuana Advance Directives: No Advance Directives Information Provided: No Sexual orientation: Straight/Heterosexual Gender identity: Female Physical Exam ED Vital Signs: Vital Signs - 24 hr 05/23/23 22:24 Temperature 98.6 F Pulse Rate 88 Respiratory Rate 14 Blood Pressure 118/78 Pulse Oximetry 95 Oxygen Delivery Method Room Air BMI result Body Mass Index 46.6 Const General: cooperative, healthy appearing, comfortable, no acute distress, well developed, alert and awake Orientation/consciousness: oriented to person, oriented to place, oriented to time and patient oriented x3 HENMT Head: Yes normal to inspection, Yes No palpable skull fracture present, Yes normocephalic and Yes atraumatic Ears: hearing grossly normal bilaterally, external ears normal, EAC's normal, mastoids normal, no periauricular adenopathy and TM abnormal erythematous bilateral Throat: Yes posterior oropharynx normal, Yes tonsils normal and Yes uvula midline Eyes General: appearance normal, both eyes and all related structures Neck Neck: Yes normal visual inspection, Yes full ROM, Yes no lymphadenopathy, Yes no meningeal signs, Yes trachea midline, Yes supple, No anterior neck swelling and No tender Chest Chest palpation & inspection: normal inspection of the chest and normal palpation of entire chest wall Resp Effort & Inspection: normal respiratory effort and able to speak in complete sentences Auscultation: clear to auscultation bilaterally Cardio Jugular venous distension: no JVD Heart sounds: S1 normal heart sound present and S2 normal heart sound present GI Inspection: Yes normal to inspection Palpation (GI): Soft to palpation, not firm, nontender, no guarding and not rigid General: No CVA tenderness and Yes no CVA tenderness Back/Spine/Pelvis Back: no CVA tenderness, No CVA tenderness and No back tenderness Skin General skin exam: no rashes or lesions noted, elasticity normal and turgor normal Neuro General: oriented to person, oriented to place, oriented to time, patient oriented x3, gait normal, tone normal, moves all extremities, Normal light touch and pain sensation, no meningeal signs, no focal motor deficits, CN's II-XI intact bilaterally and normal sensation to monofilament Extrem General: Yes normal to inspection, Yes full ROM and Yes capillary refill normal Psych Appearance: grossly normal, well kempt and not disheveled Medical Decision Making Medical Decision Making MDM Narrative: 37-year-old female presents to the ED for bilateral ear pain, sinus pain and headache for 1 week. Patient states also having worsening solid both ears. Patient denies any coughing chest pain or shortness of breath. Patient states no recent trauma. COVID influenza RSV swab negative. Patient will be treated as otitis media. Patient educated on middle effusion. Patient explained worrisome signs informed to follow-up with primary care provider and ENT Differential Diagnosis Differential Diagnoses: The differential diagnosis associated with the presentation includes (Sinusitis, otitis media, COVID, influenza, RSV) Lab Data [facility] Lab Attestation statement: I reviewed the patient's lab results. Labs: Lab Results 05/23/23 Range/Units 22:41 COVID-19 (JEANNINE) Negative (Negative) COVID-19 Clin Com See Note Influenza Type A (ANSHU) Negative (Negative) Influenza Type B (ANSHU) Negative (Negative) Influenza A & B Note See Note Independent Historian Clinical information obtained from an independent historian. History obtained from or confirmed by: Other (Patient) External Record Review External record reviewed: Other (prior visitss) Prescription Management I considered prescription management with: Antibiotic Discharge Plan Discharge Clinical Impression: Otitis media Patient Disposition: Home, Self-Care Instructions: Ear Infection (ED) Additional Instructions: Recommend follow-up with primary care provider and ENT. Return to the ED immediately worsening ear pain, drainage from the ears, nasal discharge, chest pain, shortness of breath, headache, dizziness, nausea, vomiting, or any other concerning symptoms Prescriptions: New cefuroxime axetil 500 mg tablet 500 mg PO Q12H 7 Days Qty: 14 0RF naproxen 500 mg tablet 500 mg PO BID PRN (Reason: pain) 7 Days Qty: 14 0RF No Action cyclobenzaprine 15 mg capsule,extended release 24hr 15 mg PO DAILY omeprazole 20 mg tablet,delayed release (DR/EC) 20 mg PO DAILY (DME) FreeStyle Lite Strips Strip See Rx Instructions .ROUTE BID Qty: 10 Rx Instructions: As directed (DME) lancets [FreeStyle Lancets] 28 gauge misc See Rx Instructions .ROUTE BID Qty: 100 Rx Instructions: As directed gabapentin 100 mg capsule 100 mg PO TID acetaminophen 325 mg capsule 650 mg PO Q6H PRN Referrals: Roger Tang [Physician] - (Otitis media with possible middle ear effusion) Stand Alone Forms: Work/School Release Interventions: ED Discharge Assessment Last Done: 05/24/23 00:55 Discharge Date/Time: 05/24/23 00:55 Print Language: Slovak
[2023-05-24 00:54] VITALS: BP 141/95; PULSE 84; RESP 14; O2SAT 96
== END 2023-05-24 00:55 | disposition home or self-care (01) ==
PROVIDERS: Emergency Provider Emergency Medicine Emergency Medical Services; PCP Registered Nurse
DX: H66.93 Otitis media, unspecified, bilateral (principal); H92.03 Otalgia, bilateral; N87.0 Mild cervical dysplasia; F12.90 Cannabis use, unspecified, uncomplicated; Z11.52 Encounter for screening for COVID-19; Z79.899 Other long term (current) drug therapy
CPT/HCPCS: 87502; 87635; 99283

== ENCOUNTER 2023-10-17 14:38 | Outpatient (REF) | payer MEDICAID, SELFPAY ==
[2023-10-17 15:59] LABS: MANUAL DIFF FLAG NO
[2023-10-17 16:10] LABS: Basophils Absolute Auto 0.1 X10*3/uL (0.0-0.2); Basophils Percent Auto 0.4 % (0-2); Eosinophils Absolute Auto 0.2 X10*3/uL (0.0-0.4); Eosinophils Percent Auto 1.4 % (0-4); Hematocrit 41.6 % (37.0-47.0); Hemoglobin 13.7 g/dl (12.0-16.0); Imm Gran Abs Auto 0.08 X10*3/uL (0.00-0.03); Imm Gran Pct Auto 0.7 % (0.0-0.4); Lymphocytes Absolute Auto 3.1 X10*3/uL (1.2-4.9); Lymphocytes Percent Auto 25.8 % (20-40); Mean Corpuscular HGB Conc 32.9 g/dl (31.0-35.0); Mean Corpuscular Hemoglobin 30.9 pg (27.0-33.0); Mean Corpuscular Volume 93.7 fL (80.0-98.0); Mean Platelet Volume 10.5 fL (9.4-12.3); Monocytes Absolute Auto 0.7 X10*3/uL (0.1-1.2); Monocytes Percent Auto 5.5 % (2-11); Neutrophils Absolute Auto 7.9 x10*3/uL (2.0-8.3); Neutrophils Percent Auto 66.2 % (45-73); Platelet Count 355 X10*3/uL (160-400); Red Blood Count 4.44 X10*6/uL (4.20-5.50); Red Cell Distribution Width 12.9 % (11.0-16.0); White Blood Count 11.9 X10*3/uL (4.8-10.8)
[2023-10-17 16:28] LABS: Estimated Average Glucose 128 mg/dL; Hemoglobin A1c % 6.1 % (<6.0)
[2023-10-17 16:37] LABS: Alanine Aminotransferase 30 U/L (0-31); Albumin Level 4.1 g/dL (3.5-5.0); Alkaline Phosphatase 83 U/L (39-117); Anion Gap 15 (12-20); Aspartate Amino Transferase 19 U/L (5-31); Bilirubin Total 0.3 mg/dL (0.0-1.0); Blood Urea Nitrogen 11 mg/dL (9-16); Calcium 9.7 mg/dL (8.4-10.2); Carbon Dioxide 26 mmol/L (22-29); Chloride 102 mmol/L (96-108); Cholesterol 160 mg/dL (<200); Estimated Glomerular Filt Rate > 60; Glucose Random 137 mg/dL (60-115); HDL Cholesterol 38 mg/dL (>40); LDL Cholesterol Calculated 85 mg/dL (<100); Sodium 139 mmol/L (135-145); Total Protein 7.6 g/dL (6.5-8.0); Triglycerides 185 mg/dL (<150)
== END 2023-10-17 14:39 | disposition home or self-care (01) ==
LOC: HO.HHCL 14:38
PROVIDERS: Visit Provider Nurse Practitioner Family
DX: R73.9 Hyperglycemia, unspecified (principal)
CPT/HCPCS: 36415; 80053; 80061; 83036; 85025

== ENCOUNTER 2024-03-11 22:38 | Emergency (ER) | payer MEDICAID, SELFPAY ==
[2024-03-11 22:41] VITALS: BP 120/72; PULSE 93; RESP 16; TEMP 35.9; O2SAT 96; BMI 48.6
[2024-03-11 23:10] LABS: Appearance Urine Clear; Color Urine Orange; Glucose Urine UA Negative (Negative); Leukocyte Esterase Urine Small (1+) (Negative); Nitrite Urine Negative (Negative); PH 5.5 (5.0-9.0); Specific Gravity - Urine <= 1.005 (1.005-1.025); UMIC TRIGGER UACC YES; Urine Blood Large (3+) (Negative); Urine Ketones Negative (Negative); Urine Protein Negative (Neg-Trace)
[2024-03-11 23:11] LABS: UPreg QC Valid YES; Urine Pregnancy NEGATIVE (NEGATIVE)
[2024-03-11 23:22] LABS: Bacteria Urine None Seen (None Seen); Hyaline Casts Urine 0-2 /LPF (0-2); RBC Urine 0-2 /HPF (0-2); UACC Culture Trigger YES; WBC Urine 0-5 /HPF (0-5)
--- NOTE | 2024-03-11 23:47 | ED_ITS ---
HPI - Back Pain/Injury General Chief Complaint: Back Pain/Injury Stated Complaint: back pain Time Seen by Provider: 03/11/24 23:31 Source: patient Mode of arrival: ambulatory Limitations: no limitations History of Present Illness ED Provider: HPI Narrative: Patient has chronic low back pain with right sciatica comes here for worsening of the pain for last few days with a taking gabapentin with partial response no urinary symptoms no history of kidney stone Related Data Home Medications ?Medication ?Instructions ?Recorded ?Confirmed cyclobenzaprine 15 mg 15 mg PO DAILY 02/26/20 02/26/20 capsule,extended release 24 hr omeprazole 20 mg tablet,delayed 20 mg PO DAILY 10/28/20 release blood sugar diagnostic (FreeStyle #10 ea 07/07/22 Lite Strips) lancets 28 gauge (FreeStyle #100 ea 07/07/22 Lancets) acetaminophen 325 mg capsule 650 mg PO Q6H PRN 12/29/22 gabapentin 100 mg capsule 100 mg PO TID 12/29/22 Previous Rx's ?Medication ?Instructions ?Recorded cefuroxime axetil 500 mg tablet 500 mg PO Q12H 7 days #14 tabs 05/24/23 naproxen 500 mg tablet 500 mg PO BID PRN pain 7 days #14 05/24/23 tabs cyclobenzaprine 10 mg tablet 10 mg PO Q8H #20 tabs 03/11/24 ibuprofen 600 mg tablet 600 mg PO Q6H PRN fever or pain 03/11/24 #30 tabs Allergies Allergy/AdvReac Type Severity Reaction Status Date / Time penicillin V Allergy Unknown rash Verified 03/11/24 22:46 Review of Systems Review of Systems: Yes all other systems are reviewed and are negative [facility] Past Medical History Medical History KRISHNA I (cervical intraepithelial neoplasia I) Migraine with aura ADHD Bipolar 2 disorder 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 Surgical History Hx laparoscopic cholecystectomy History of Family History Family History Maternal Grandfather Liver cancer Paternal Grandmother Breast cancer Intestinal tumor Family/Other Uterine cancer Ovarian cancer Social History Social History Alcohol intake: current Comment: cramping Patient Tobacco Use Status: Former Tobacco user Substance Use Type: Marijuana Do you have a plan to hurt others: No Plan Sexual orientation: Straight/Heterosexual Gender identity: Female Physical Exam Vital Signs: Vital Signs: Last Vital Signs Temp 96.6 F L 03/11/24 22:41 Pulse 93 03/11/24 22:41 Resp 16 03/11/24 22:41 BP 120/72 03/11/24 22:41 Pulse Ox 96 03/11/24 22:41 O2 Del Method Room Air 03/11/24 22:41 BMI result Body Mass Index 48.6 Appearance: Alert. Oriented X3. No acute distress. Obese Eyes: No pallor or icterus ENT: Pharynx normal. Oral Mucosa moist Neck: Normal inspection. Neck supple. CVS: Normal heart rate and rhythm. Pulses normal. Respiratory: No respiratory distress. Equal air entry bilateral, no wheezing/rales/rhonchi Abdomen: Soft and nontender. Bowel sounds are present, no mass palpable, no CVA tenderness Skin: Skin warm and dry. Normal skin color. Normal skin turgor. back: Diffuse tenderness lumbar area SLR positive right leg at 60 degrees Extremities: No lower extremity edema. No calf tenderness Neuro: Oriented X 3. No motor deficit. No sensory deficit.No cerebellar signs , cranial nerves II-XII intact Medical Decision Making Medical Decision Making [facility] Narrative: Patient has chronic low back problems with no recent injury comes here for worsening of the pain already taking gabapentin will prescribe muscle relaxant Flexeril and ibuprofen no signs of spinal cord injury cycles sensations intact Lab Data [facility] Lab Attestation statement: I reviewed the patient's lab results. Labs: Lab Results 03/11/24 Range/Units 23:00 Urine Color [place] A Urine Appearance Clear Urine pH 5.5 (5.0-9.0) Ur Specific [place] <= 1.005 (1.005-1.025) Urine Protein Negative (Neg-Trace) mg/dL Urine Glucose (UA) Negative (Negative) mg/dL Urine Ketones Negative (Negative) mg/dL Urine Blood Large (3+) H (Negative) Urine Nitrite Negative (Negative) Ur Leukocyte Esterase Small (1+) H (Negative) Urine RBC 0-2 (0-2) /HPF Urine WBC 0-5 (0-5) /HPF Ur Squamous Epith Cells 3-5 (0-2) /HPF Urine Bacteria None Seen (None Seen) Hyaline Casts 0-2 (0-2) /LPF Urine Test NEGATIVE (NEGATIVE) Discharge Plan Discharge Clinical Impression: Sciatica Patient Disposition: Home, Self-Care Instructions: Sciatica (ED) Additional Instructions: Continue gabapentin Muscle relaxant as prescribed Take ibuprofen for inflammation and pain Follow up with your PCP Prescriptions: New cyclobenzaprine 10 mg tablet 10 mg PO Q8H Qty: 20 0RF ibuprofen 600 mg tablet 600 mg PO Q6H PRN (Reason: fever or pain) Qty: 30 0RF No Action cefuroxime axetil 500 mg tablet 500 mg PO Q12H 7 Days Qty: 14 0RF naproxen 500 mg tablet 500 mg PO BID PRN (Reason: pain) 7 Days Qty: 14 0RF cyclobenzaprine 15 mg capsule,extended release 24hr 15 mg PO DAILY omeprazole 20 mg tablet,delayed release (DR/EC) 20 mg PO DAILY (DME) FreeStyle Lite Strips Strip See Rx Instructions .ROUTE BID Qty: 10 Rx Instructions: As directed (DME) lancets [FreeStyle Lancets] 28 gauge misc See Rx Instructions .ROUTE BID Qty: 100 Rx Instructions: As directed gabapentin 100 mg capsule 100 mg PO TID acetaminophen 325 mg capsule 650 mg PO Q6H PRN Print Language: Emirati
[2024-03-12 00:02] VITALS: BP 120/72; PULSE 93; RESP 16; TEMP 35.9; O2SAT 96
[2024-03-12] MEDS: Cyclobenzaprine HCl 10 MG TABLET PO (00:15)
[2024-03-12] MEDS: Ibuprofen 600 MG TABLET PO (00:15)
== END 2024-03-12 00:03 | disposition home or self-care (01) ==
PROVIDERS: Emergency Provider Internal Medicine; PCP Registered Nurse
DX: M54.41 Lumbago with sciatica, right side (principal); Z79.899 Other long term (current) drug therapy
CPT/HCPCS: 81001; 81025; 87086; 99283